=== PATIENT | male | born 1955 | race Caucasian/White ===

== ENCOUNTER → 2017-10-04 | Outpatient (CLI) | payer OTHER ==
[~2017-10-04] MED LIST: LOSARTAN-HCTZ1 EAC1; TOPROL XL50 M1
== END | disposition home or self-care (01) ==
LOC: RAD 12:08
DX: M25.552 Pain in left hip (principal)

== ENCOUNTER 2018-05-19 07:07 | Outpatient (CLI) | payer OTHER | END 2018-05-19 07:23 | disposition home or self-care (01) | LOC: NUCLEAR 07:07 | DX: I11.9 Hypertensive heart disease without heart failure (principal); I25.10 Atherosclerotic heart disease of native coronary artery without angina pectoris; J44.9 Chronic obstructive pulmonary disease, unspecified | CPT/HCPCS: 78452; 93017; A9500 ==

== ENCOUNTER 2018-06-02 11:59 | Outpatient (CLI) | payer OTHER | END 2018-06-02 12:23 | disposition home or self-care (01) | LOC: LAB 11:59 | DX: N18.3 Chronic kidney disease, stage 3 (moderate) (principal); I10 Essential (primary) hypertension; E78.49 Other hyperlipidemia ==

== ENCOUNTER 2019-01-10 10:44 | Outpatient (CLI) | payer OTHER | END 2019-01-10 20:16 | disposition home or self-care (01) | LOC: LAB 10:44 | DX: E03.8 Other specified hypothyroidism (principal); E11.9 Type 2 diabetes mellitus without complications; E78.1 Pure hyperglyceridemia; I11.9 Hypertensive heart disease without heart failure ==

== ENCOUNTER 2019-05-22 07:44 | Outpatient (CLI) | payer OTHER | END 2019-05-22 17:02 | disposition home or self-care (01) | LOC: LAB 07:44 | DX: I11.9 Hypertensive heart disease without heart failure (principal); N40.0 Benign prostatic hyperplasia without lower urinary tract symptoms; C61 Malignant neoplasm of prostate ==

== ENCOUNTER → 2019-09-25 09:08 | Outpatient (CLI) | payer OTHER | END | disposition home or self-care (01) | LOC: LAB 09:08 | DX: I11.9 Hypertensive heart disease without heart failure (principal); E78.2 Mixed hyperlipidemia; I13.10 Hypertensive heart and chronic kidney disease without heart failure, with stage 1 through stage 4 chronic kidney disease, or unspecified chronic kidney disease; N18.2 Chronic kidney disease, stage 2 (mild); I10 Essential (primary) hypertension ==

== ENCOUNTER 2019-10-16 11:11 | Outpatient (CLI) | payer OTHER | END 2019-10-16 11:18 | disposition home or self-care (01) | LOC: SONOGRAMA 11:11 | DX: K76.89 Other specified diseases of liver (principal) ==

== ENCOUNTER 2020-02-18 10:20 | Outpatient (CLI) | payer OTHER | END 2020-02-18 10:27 | disposition home or self-care (01) | LOC: LAB 10:20 | PROVIDERS: ATTEND Internal Medicine Hematology & Oncology | DX: D68.8 Other specified coagulation defects (principal); E88.01 Alpha-1-antitrypsin deficiency; K76.0 Fatty (change of) liver, not elsewhere classified; E83.19 Other disorders of iron metabolism ==

== ENCOUNTER → 2020-03-25 10:48 | Outpatient (CLI) | payer OTHER | END | disposition home or self-care (01) | LOC: LAB 10:48 | PROVIDERS: ATTEND Internal Medicine Hematology & Oncology | DX: D64.89 Other specified anemias (principal); K76.0 Fatty (change of) liver, not elsewhere classified; E88.01 Alpha-1-antitrypsin deficiency ==

== ENCOUNTER 2021-06-03 07:57 | Outpatient (CLI) | payer OTHER | END 2021-06-03 08:03 | disposition home or self-care (01) | LOC: SONOGRAMA 07:57 → MAMO-SONO 08:00 → SONOGRAMA 08:03 | PROVIDERS: ATTEND Internal Medicine Gastroenterology | DX: K74.69 Other cirrhosis of liver (principal); R10.84 Generalized abdominal pain; J44.1 Chronic obstructive pulmonary disease with (acute) exacerbation; J45.41 Moderate persistent asthma with (acute) exacerbation ==

== ENCOUNTER 2021-06-29 14:22 | Outpatient (CLI) | payer OTHER | END 2021-06-29 14:29 | disposition home or self-care (01) | LOC: TOM 14:22 | PROVIDERS: ATTEND Internal Medicine Pulmonary Disease | DX: K75.89 Other specified inflammatory liver diseases (principal); R18.8 Other ascites; R06.02 Shortness of breath; E88.01 Alpha-1-antitrypsin deficiency; J43.2 Centrilobular emphysema ==

== ENCOUNTER 2021-10-05 08:03 | Emergency (ER) | payer OTHER ==
[~2021-10-05] VITALS: Ht 175.3 cm; Wt 78.9 kg
[2021-10-05] MEDS ORDERED: SYMBICORT 80/10.2 GM IH (10:03)
[2021-10-05] MEDS ORDERED: CORGARD20 M1 PO (10:03)
[2021-10-05] MEDS ORDERED: ALDACTONE25 MG PO (10:04)
== END 2021-10-05 16:45 | disposition home or self-care (01) ==
LOC: ER 08:03
DX: R10.84 Generalized abdominal pain (principal); R11.10 Vomiting, unspecified; I10 Essential (primary) hypertension; K74.60 Unspecified cirrhosis of liver; Z88.0 Allergy status to penicillin